=== PATIENT | female | born 1985 | race African-American/Black ===

== ENCOUNTER → 2016-05-23 | Outpatient (CLI) | payer MEDICARE, MEDICAID ==
[~2016-05-23] MED LIST: AMOXICILLIN500 MG PO; ANAPROX275 MG PO; ANTIVERT/2525 MG PO; ATARAX50 MG PO; ATIVAN2 M1 PO; AUGMENTIN 875 M1 TAB PO; BACTRIM DS 8001 TA1 PO; CIPROFLOXACIN500 MG PO; CLARITIN10 MG PO; COGENTIN0.5 MG PO; COGENTIN1 MG PO; DIFLUCAN150 MG PO; ESCITALOPRAM OX10 MG PO; FLEXERIL10 MG PO; FLEXERIL5 MG; Fioricet 325 MG1 TAB PO; HYDROXYZINE PAM25 M1 PO; KLONOPIN2 M1 PO; MACROBID100 M1 PO; NAPROSYN500 MG PO; NAPROXEN D/R500 MG PO; NEURONTIN100 MG PO; OMEPRAZOLE20 M1 PO; PEN-VEE K500 MG PO; PREDNICOT20 MG PO; PYRIDIUM200 MG PO; TRAMADOL HCL50 MG PO; TRILAFON4 MG PO; XANAX XR2 MG PO; XANAX1 MG PO; XANAX2 M1 PO; ZITHROMAX Z PA250 MG PO; ZITHROMAX250 MG PO; ZOFRAN ODT4 MG SL; ZOFRAN4 MG PO; Zofran4 MG PO
[2016-05-23 11:24] LABS: BILIRUBIN NEGATIVE (NEGATIVE); BLOOD NEGATIVE (NEGATIVE); CLARITY SL CLOUDY (CLEAR); COLOR YELLOW (YELLOW); GLUCOSE NEGATIVE (NEGATIVE); KETONE 1+ (NEGATIVE); LEUKO ESTERASE NEGATIVE (NEGATIVE); NITRITE POSITIVE (NEGATIVE); PH 5.5 (5.0-9.0); PROTEIN NEGATIVE (NEGATIVE); UROBILINOGEN 0.2 E.U./dl (0.2-1.0)
[2016-05-23 11:28] LABS: BASO # 0.1 10*3/uL (0.0-0.1); BASO % 0.7 % (0.0-1.0); EOS # 0.1 10*3/uL (0.0-0.4); EOS % 0.7 % (1.0-4.0); HEMATOCRIT 39.8 % (37.0-47.0); HEMOGLOBIN 12.8 g/dl (12.0-16.0); LYMPH # 1.5 10*3/uL (1.3-4.4); LYMPH % 21.5 % (27.0-41.0); MEAN CELL VOLUME 83.4 fl (81.0-99.0); MEAN CORPUSCULAR HGB 26.8 pg (27.0-31.0); MEAN CORPUSCULAR HGB CONC 32.2 g/dl (33.0-37.0); MEAN PLATELET VOLUME 11.3 fl (9.6-12.3); MONO # 0.5 10*3/uL (0.1-1.0); MONO % 7.8 % (3.0-9.0); NEUT # 4.7 10*3/uL (2.3-7.9); NEUT % 69.2 % (47.0-73.0); PLATELET COUNT AUTOMATED 229 10*3/uL (130-400); RED BLOOD COUNT 4.77 10*6/uL (4.10-5.10); RED CELL DISTRI WIDTH 13.7 % (0-14.5); WHITE BLOOD COUNT 6.8 10*3/uL (4.8-10.8)
[2016-05-23 11:33] LABS: BACTERIA 3+; RBC 0-2 rbc/hpf (0-2)
[2016-05-23 11:37] LABS: URINE AMPHETAMINES < 1000 (1000ng/ml); URINE BARBITURATES < 200 (200ng/ml); URINE COCAINE < 300 (300ng/ml)
[2016-05-23 11:58] LABS: ALBUMIN 4.1 gm/dl (3.1-4.5); ALKALINE PHOSPHATASE 63 U/L (45-117); BILIRUBIN, DIRECT 0.1 mg/dL (0.0-0.2); BILIRUBIN, TOTAL 0.8 mg/dl (0.2-1.0); BUN 9 mg/dl (7-24); CARBON DIOXIDE 26 mmol/L (21-32); CHLORIDE 106 mmol/L (98-107); CHOLESTEROL 166 mg/dL (<200); EST GLOM FILT AFRICAN AMERICAN > 60 ml/min; GLUCOSE 88 mg/dL (65-99); HDL CHOLESTEROL 121 mg/dl (40-60); LDL CHOLESTEROL 38 mg/dL (9-159); POTASSIUM 4.1 mmol/L (3.5-5.1); SGOT/AST 31 IU/L (3-35); SGPT/ALT 35 U/L (12-78); SODIUM 142 mmol/L (136-145); THYROXINE (T4) TOTAL 9.6 ug/dl (4.8-13.9); TOTAL PROTEIN 8.3 gm/dL (6.4-8.2); TRIGLYCERIDES 36 mg/dl (<150); VLDL CHOLESTEROL 7 mg/dL (6-40)
[2016-05-23 12:04] LABS: B-hCG (QUALITATIVE) NEGATIVE (NEGATIVE)
== END | disposition home or self-care (01) ==
LOC: LAB 10:53
PROVIDERS: Nurse Practitioner Psychiatric/Mental Health
DX: A41.9 Sepsis, unspecified organism (principal); F68.8 Other specified disorders of adult personality and behavior; E55.9 Vitamin D deficiency, unspecified; Z79.899 Other long term (current) drug therapy

== ENCOUNTER 2016-06-03 12:23 | Emergency (ER) | payer MEDICARE, MEDICAID ==
[2016-06-03 12:46] LABS: BILIRUBIN NEGATIVE (NEGATIVE); BLOOD NEGATIVE (NEGATIVE); CLARITY SL CLOUDY (CLEAR); COLOR YELLOW (YELLOW); GLUCOSE NEGATIVE (NEGATIVE); KETONE NEGATIVE (NEGATIVE); LEUKO ESTERASE NEGATIVE (NEGATIVE); NITRITE NEGATIVE (NEGATIVE); PH 6.5 (5.0-9.0); PROTEIN NEGATIVE (NEGATIVE); SPECIFIC GRAVITY <= 1.005 (1.005-1.030); UROBILINOGEN 0.2 E.U./dl (0.2-1.0)
[2016-06-03 12:56] LABS: BACTERIA TRACE; URINE REFLEX COMMENT NO (NO)
[2016-06-03] MEDS ORDERED: BACTRIM DS 8001 TA1 PO (13:39)
[2016-06-03] MEDS ORDERED: DIFLUCAN150 MG PO (13:39)
[2016-06-03] MEDS ORDERED: PYRIDIUM200 M1 PO ×2 (13:39→14:08)
== END 2016-06-03 14:36 | disposition home or self-care (01) ==
LOC: ED 12:23
PROVIDERS: Emergency Medicine
DX: N39.0 Urinary tract infection, site not specified (principal); F41.9 Anxiety disorder, unspecified; Z90.49 Acquired absence of other specified parts of digestive tract; Z88.8 Allergy status to other drugs, medicaments and biological substances

== ENCOUNTER → 2016-06-27 | Outpatient (CLI) | payer MEDICARE, MEDICAID ==
[~2016-06-27] MED LIST changes: +PYRIDIUM200 M1 PO
[2016-06-27 08:38] LABS: CHOLESTEROL 151 mg/dL (<200); HDL CHOLESTEROL 90 mg/dl (40-60); LDL CHOLESTEROL 50 mg/dL (9-159); TRIGLYCERIDES 56 mg/dl (<150); VLDL CHOLESTEROL 11 mg/dL (6-40)
== END | disposition home or self-care (01) ==
LOC: LAB 00:57 → CARD 00:57
PROVIDERS: Internal Medicine Cardiovascular Disease
DX: E78.5 Hyperlipidemia, unspecified (principal); R94.31 Abnormal electrocardiogram [ECG] [EKG]

== ENCOUNTER 2016-09-10 08:50 | Emergency (ER) | payer MEDICARE, MEDICAID ==
[~2016-09-10] VITALS: Ht 162.5 cm; Wt 72.6 kg
[2016-09-10] MEDS ORDERED: LORAZEPAM1 MG PO (08:59)
[2016-09-10] MEDS ORDERED: BISOPROLOL FM5 MG PO (08:59)
[2016-09-10] MEDS ORDERED: Motrin,Rufen800 MG PO (09:15)
[2016-09-10] MEDS ORDERED: AMOXICILLIN500 M2 PO (09:15)
== END 2016-09-10 09:23 | disposition home or self-care (01) ==
LOC: ED 08:50
DX: K04.7 Periapical abscess without sinus (principal); F17.200 Nicotine dependence, unspecified, uncomplicated; Z90.49 Acquired absence of other specified parts of digestive tract; Z88.8 Allergy status to other drugs, medicaments and biological substances